=== PATIENT | female | born 1995 | race Caucasian/White ===

== ENCOUNTER 2017-03-30 17:06 | Inpatient (IN) | payer MEDICAID, OTHER ==
[2017-03-30] MEDS ORDERED: Promethazine HCl 25 MG/ML VIAL IM PRN (18:37)
[2017-03-30] MEDS ORDERED: Ondansetron HCl/PF 4 MG/2 ML Vial IVP PRN (18:37)
[2017-03-30 19:07] LABS: Mean Platelet Volume 8.5 fL (7.4-10.4); Red Blood Cell (RBC) Count 4.46 mill/uL (4.00-5.20); White Blood Cell (WBC) Count 9.4 thou/uL (4.8-10.8)
[2017-03-30 19:15] LABS: ALT (SGPT) 9 U/L (8-55); AST (SGOT) 12 U/L (5-34); Alkaline Phosphatase 71 U/L (40-150); Anion Gap 14 mmol/L (10-20); BUN (Urea Nitrogen) 8 mg/dL (7.0-18.7); Bilirubin, Total 0.2 mg/dL (0.2-1.2); Calc. Creatinine Clearance 276 mL/min (70-130); Carbon Dioxide 19 mmol/L (22-29); Chloride 109 mmol/L (98-107); Estimated GFR-MDRD Greater than 90; Globulin 3.3 g/dL (2.4-3.5)
[2017-03-30] MEDS ORDERED: Lactated Ringer's 1,000 ML IV SCH (19:15)
--- NOTE | 2017-03-30 20:52 | PDOC.EVN ---
Event Note - Event Note Event Note: Patient seen and examined in room 320 at 2045pm. Case discussed with Dr. Fortune/Christopher and her H&P reviewed and repeated by me. Agree with A/P as documented. Teresa is a 21 y/o at 14 4/7 weeks who presents to the office today for n/ v and dizziness. States for last 2 weeks increased n/v despite taking diclegis 2 tabs po qhs. Then started having some dizziness. In office received 1.5L NS bolus and zofran. Orthostatics were positive with HR increase from 90s to 120s. Sent over for observation and continue IVF. Also endorses a 2# weight loss. She has tolerated dinner with only mild nausea and no vomiting. VSS Gen: A&O x3, nad CV: normal s1/s2 no m Lungs: ctab Abd: soft, nt/nd Ext: no c/c/e, pulses full and equal Labs reviewed. 1) IUP at 14 4/7 weeks 2) Moderate dehydration- LR at 200 ml per hour. Recheck orthostatics in the am\ 3) N/v of vs hyperemesis gravidarum-increase diclegis to 4 tabs daily and add prn zofran/phenergan
[2017-03-30] MEDS: Lactated Ringer's 1,000 ML IV SCH (21:06)
[2017-03-30] MEDS ORDERED: Doxylamine 25 MG TAB PO SCH (21:21)
[2017-03-31] MEDS: Lactated Ringer's 1,000 ML IV SCH ×2 (01:04→06:07)
--- NOTE | 2017-03-31 02:01 | HP-2 ---
CODE STATUS: FULL. PRIMARY CARE PHYSICIAN: Dr. Mitch Stafford. ATTENDING PHYSICIAN: Dr. Rochelle Keating RESIDENT PHYSICIAN: Dr. Massiel Fortune. CHIEF COMPLAINT: Nausea, vomiting, dizziness. HISTORY OF PRESENT ILLNESS: This is a 21-year-old female G3, P2-0-0-2 at 14 and 4 weeks that present s with nausea, vomiting, dizziness upon standing, onset of symptoms was 2 weeks ago. Patient has bee n unable to keep down food or liquids during that time. She also endorses a 2 pound weight loss over the course of 2 weeks. Patient has had no complications during this current . She has bee n taking Diclegis at night without any relief of symptoms. Patient was given Zofran and 1.5 liter no rmal saline in procedure clinic at [facility]. However, after receiving a 1.5 liter bolus. Sh henrique stood up and almost passed out that she was sent over for observation and further fluid resuscitati on. PAST MEDICAL HISTORY: 1. Morbid obesity. 2. Asthma. PAST SURGICAL HISTORY: Cholecystectomy. ALLERGIES: SULFA. MEDICATIONS: 1. Zofran ODT 8 mg q.6 hours p.r.n. 2. CitraNatal 90 DHA 90-1-300 mg oral daily. 3. Diclegis 10-10 mg oral tablet, delayed release 2 tablets at bedtime. FAMILY HISTORY: Father with osteogenesis imperfecta and diabetes in both mother and father. SOCIAL HISTORY: Patient denies tobacco, alcohol, or drug use. REVIEW OF SYSTEMS: A 12 point review of systems was performed and all were negative except as listed in the HPI and as indicated below: Patient does endorse nasal congestion, rhinorrhea and congestion over the last several weeks. She denies any shortness of breath or chest pain. Patient has had dec reased urination during the course of this 2 weeks and endorses weakness, particularly upon standing. PHYSICAL EXAMINATION: VITAL SIGNS: Blood pressure 130/84, pulse 90, respiratory rate 20, T-max 98.5, pulse ox 98% on room air. Current weight 115 kilograms. GENERAL: Alert and oriented x3, no acute distress. Well-developed, well-nourished, obese, appropria tely interactive. EYES: Pupils are equally round and reactive to light and accommodation. Extraocular muscles intact. Conjunctivae within normal limits. ENT: Nasal mucosa within normal limits. NECK: Supple, without lymphadenopathy. CARDIOVASCULAR: Regular rate and rhythm. No murmur or gallops. Radial pulses 2+, pedal pulses 2+. RESPIRATORY: Normal effort, no retractions, clear to auscultation bilaterally. SKIN: Warm and dry. No cyanosis. No lesions. ABDOMEN: Soft, nontender to palpation. Bowel sounds positive in all 4 quadrants. No masses or dist ention. The patient is gravid. EXTREMITIES: No clubbing, cyanosis, or edema. MUSCULOSKELETAL: Structure within normal limits. Tone within normal limits. NEUROLOGIC: No focal deficits. Sensation within normal limits. GCS 15. PSYCHIATRIC: Appropriate. LABORATORY DATA: 1. CBC reveals white blood cell count 9.4, hemoglobin 15.0, hematocrit 38.0, platelets 262. 2. CMP reveals sodium 138, potassium 3.5, chloride 109, bicarbonate 19, BUN 8, creatinine 0.59, gluc ose 71, calcium 9.0, total protein 7.0, albumin 3.7, total bilirubin 0.2, AST 12, ALT 9, alkaline whit sphatase 71. ASSESSMENT AND PLAN: This is a 21-year-old female, G3, P2-0-0-2 at 14 and 4 weeks that presents with nausea, vomiting, and dizziness. 1. Hyperemesis gravidarum. We will continue Diclegis and consider increasing the dose to 3 times a day. Additionally, patient has Zofran and Phenergan p.r.n. for nausea and vomiting. We will see [facility] of these medications works best for patient and consider sending her home on the appropriate medic ation. 2. Moderate dehydration. Continue IV fluids at 200 mL per hour, lactated Ringer's. Patient was giv en 1.5 liters in clinic. We will monitor heart rate and other vital signs and continue to observe th e patient overnight. 3. Intrauterine at 14 and 4 weeks: Second trimester. Patient is doing well. heart tones were 135 to 140 beats per minute, on Doppler. DISPOSITION AND LENGTH OF HOSPITAL STAY: One day. Symptomatic medications will be provided. History and physical exam as well as management discussed with Dr. Rochelle Keating.
--- NOTE | 2017-03-31 07:04 | PDOC.LDPN ---
Labor & Delivery Progress Note - Subjective Subjective: comfortable (Patient had a good night. She states the nausea medicine really works. She states she has not vomited or had diarrhea since she has been here. She states she does get nauseas at times, but the medicine takes it away pretty quickly. She denies any vaginal bleeding or discharge. She denies contractions or abdominal pain. She was able to tolerate food last night and is feeling much better. No other concerns this morning. ) - Objective Vital signs reviewed and normal: yes General: NAD Uterine fundus: non tender
--- NOTE | 2017-03-31 07:10 | PDOC.FM ---
- Subjective Subjective: Patient is ready to go home today. She states that the nausea medicine really works. She states she does get nauseas at times, but the medicine takes care of it. She denies any vomiting/diarrhea while in the hospital. She denies any abdominal pain. She also denies vaginal bleeding or discharge. She states she was able to tolerate food last night and drink plenty. She feels like the IVF helped her get caught back up on her hydration. She said several times that she feels much better today. - Objective Vital Signs & Weight: Vital Signs (12 hours) Temp Pulse Resp BP Pulse Ox 03/31/17 01:05 98.6 F 81 16 110/53 L 98 03/30/17 20:11 98.3 F 80 18 98/56 L 99 I&O: 03/30/17 03/31/17 04/01/17 06:59 06:59 06:59 Intake Total 2541 Balance 2541 Result Diagrams: 03/30/17 17:37 03/30/17 17:37 <Myles Ward - Last Filed: 03/31/17 08:22> - Objective Vital Signs & Weight: Vital Signs (12 hours) Temp Pulse Resp BP Pulse Ox 03/31/17 08:58 98.2 F 79 20 127/65 98 03/31/17 07:40 98.6 F 81 16 Weight Weight 114.759 kg I&O: 03/30/17 03/31/17 04/01/17 06:59 06:59 06:59 Intake Total 2541 Balance 2541 Result Diagrams: 03/30/17 17:37 03/30/17 17:37 <Elizabeth Hitchcock - Last Filed: 03/31/17 13:11> Phys Exam - Physical Examination HEENT: PERRLA, moist MMs Neck: no nodes, no JVD Respiratory: no wheezing, clear to auscultation bilateral Cardiovascular: RRR, no significant murmur Gastrointestinal: soft, non-tender, no distention, positive bowel sounds Musculoskeletal: no edema, pulses present Neurological: non-focal, normal sensation, moves all 4 limbs Lymphatic: no nodes Psychiatric: normal affect, A&O x 3 Skin: no rash <Myles Ward - Last Filed: 03/31/17 08:22> Dx/Plan (1) Hyperemesis gravidarum Code(s): O21.0 - MILD HYPEREMESIS GRAVIDARUM Status: Acute Plan: -Zofran and Diclegis have controlled symptoms -Now tolerating PO -Likely to be discharged home today with medications to help with nausea (2) Intrauterine Code(s): Z34.90 - ENCNTR FOR SUPRVSN OF NORMAL , UNSP, UNSP TRIMESTER Status: Acute Plan: -21 yo at 14w5d Recommend to keep all routine care visits. (3) Dehydration Code(s): E86.0 - DEHYDRATION Status: Acute Plan: -Likely resolved -Tolerating PO - Plan Plan: Patient can be discharged home today with routine follow up. <Myles Ward - Last Filed: 03/31/17 08:22> Attending Addendum - Attending Addendum I personally evaluated the patient and discussed the management with Dr. Ward I agree with the History, Examination, Assessment and Plan documented above with any addition or exceptions noted below. 21 yo female at 14.5 wks admitted for severe nausea and vomitting of with moderate dehydration. Did well overnight. Medications started. IVFs given. Patient tolerated solids this AM. No N/V. VSS. Okay for d/c today. Precautions addressed. Follow up with PCP next week. Adam <Elizabeth Hitchcock - Last Filed: 03/31/17 13:11>
[2017-03-31] MEDS ORDERED: Prenatal Vitamin 1 TAB PO SCH (09:00)
[2017-03-31 09:02] VITALS: BP 127/65; TEMP 98.2
--- NOTE | 2017-03-31 10:40 | DIS-2 ---
DATE OF ADMISSION: 03/30/2017 DATE OF DISCHARGE: 03/31/2017 RESIDENT: Dr. Myles Ward ADMITTING ATTENDING: Dr. Yovanny Keating DISCHARGE ATTENDING: Elizabeth Hitchcock M.D. CONSULTATIONS: None. PROCEDURES: None. DISCHARGE DIAGNOSES: 1. Hyperemesis . 2. Intrauterine . 3. Dehydration. SECONDARY DIAGNOSES: Asthma and morbid obesity. DISCHARGE MEDICATIONS: 1. vitamin. 2. Docusate 240 mg b.i.d. 3. Ibuprofen 800 mg. 4. Diclegis 4 tablets as directed. HISTORY OF PRESENT ILLNESS AND HOSPITAL COURSE: This is a 21-year-old female, G3, P2-0-0-2 at 14 weeks and 4 days presents with nausea, vomiting, dizziness upon standing. Onset of symptoms about 2 weeks ago. The patient has been unable to keep down food or liquids during this time. She also endorses 2 pound weight loss over the course 2 weeks. The patient has had no complications during this current . She has been taking Diclegis at night without any relief of symptoms. The patient was given Zofran, 1.5 liters normal saline at [facility]. However, after receiving 1.5 liters bolus she stood up and almost passed out. She was sent over for observation and further fluid resuscitation. During this hospitalization, she was given Zofran and maintenance fluids. She was no longer symptomatic, no longer feeling dizzy. She was able to eat and keep food down appropriately. She felt like her hydration status had improved back to baseline and that her nausea was under well control. She did state she was continuing to have nausea, but the Zofran immediately helped that and then helped her keep the food down. She also went under heart tones while she was here and had heart tones were found and were reassuring and so it was recommended that she be discharged and has her routine follow up going forward. Otherwise, the patient had no other complications during this hospitalization and was discharged in appropriate condition. DISPOSITION: Stable. DISCHARGE INSTRUCTIONS: 1. Location: She will be discharged home under her own care. 2. Diet will be as tolerated with no restrictions, but we do recommend she take it easy until her nausea has resolved completely as far as a bland diet. 3. Activity will be as tolerated with no restrictions. 4. Followup: Follow up will be with [facility] in the next 3-7 days to discuss further management of her nausea and to follow up with her routine care. We wish her the best of luck and hope she has an uneventful going forward. SOURAV
[2017-03-31] MEDS ORDERED: Doxylamine 25 MG TAB PO SCH (21:00)
== END 2017-03-31 09:56 | disposition home or self-care (01) | DRG 781 ==
LOC: ERS 17:06 → 3SE 17:06 → UNDOADMIN 18:04 → 3SE 18:04 → UNDODISIN 03-31 09:56
PROVIDERS: ADMIT Student in an Organized Health Care Education/Training Program; ATTEND Student in an Organized Health Care Education/Training Program
PROC: 4A0HXCZ Measurement of Products of Conception, Cardiac Rate, External Approach (ICD-10-PCS; principal; 2017-03-31)
DX: O21.0 Mild hyperemesis gravidarum (principal); E66.01 Morbid (severe) obesity due to excess calories; E86.0 Dehydration; O99.212 Obesity complicating pregnancy, second trimester; O99.512 Diseases of the respiratory system complicating pregnancy, second trimester; J45.909 Unspecified asthma, uncomplicated; O99.282 Endocrine, nutritional and metabolic diseases complicating pregnancy, second trimester; Z3A.14 14 weeks gestation of pregnancy; Z88.2 Allergy status to sulfonamides; Z90.49 Acquired absence of other specified parts of digestive tract; Z83.3 Family history of diabetes mellitus
CPT/HCPCS: 80053; 85027; J2405

== ENCOUNTER 2017-07-04 15:44 | Day surgery (SDC) | payer OTHER ==
[2017-07-04 16:15] VITALS: BMI 42.9
[2017-07-04 16:16] VITALS: BP 107/58; TEMP 99.3
--- NOTE | 2017-07-04 17:23 | PDOC.LDHP ---
Labor and Delivery H&P Chief complaint: loss of fluid HPI: 21 yo at 28.2 wks here complaining of leaking fluid, occasional ctx and some bleeding (last on 06/26). Fluid leaking happens "most" days, per pt. Ctx usually last a few seconds each, total 2-3 minutes at a time, but not happening every day. Bleeding is usually just some spotting, but on the she quantifies it as being about a cupful of blood. Has been seeing MFM for fetus with clubfeet and elevated S:D ratios. Last saw MFM on 06/23, has f/u appt on . Has PMH of asthma, not on medication. Of note pt initially had previa, but has progressed to posterofundal placenta now. Current gestational age (weeks): 28 Grav: 3 Para: 2 Abnormal US findings: Yes Current medications: pre-bev vitamins Previous surgical history: none Social history: none - Physical Exam Vital signs reviewed and normal: yes General: NAD, resting Heart: RRR Lungs: CTAB Abdomen: NTTP Extremeties: no edema FHT: category 1 [place] contractions every: none - Assessment Possible PPROM - Plan Plan: observation in L&D -: Will observe for contractions. Sterile spec done for pooling, none noted. Amnisure, fFN, VP3, GBS swabs collected. Unless she develops ctx, will hold fFN. DVP of DVP > 4cm visualized on bedside sono, as well as posterofundal placental location. Good tone. <Ge Rice - Last Filed: 07/04/17 17:17> <John Garcia - Last Filed: 07/04/17 19:53> Allergies/Adverse Reactions: Allergies Allergy/AdvReac Type Severity Reaction Status Date / Time Sulfa (Sulfonamide Allergy Verified 05/16/15 10:55 Antibiotics) Attending Addendum - Attending Addendum Date/Time: 07/04/171951 I personally evaluated the patient and discussed the management with Dr. Rice. I agree with and repeated the History, Examination, Assessment and Plan documented above with any addition or exceptions noted below. Reassuring NST. DVP 4.54 cm. Incidental BPP 8/10 (off for breathing, did not wait beyond 10 minutes). +UA, negative VP3 and amnisure. Will d/c home with antibiotics. <John Garcia - Last Filed: 07/04/17 19:53>
[2017-07-04 17:32] LABS: Amnisure Internal Control QC ACCEPTABLE (ACCEPTABLE); Amnisure Test No Membranes Rupture (No Rupture)
[2017-07-04 17:33] LABS: Bilirubin Negative (Negative); Blood, Urine Negative (Negative); Clarity CLOUDY (Clear); Glucose, Urine (Dipstick) Negative (Negative); Leukocyte Moderate (Negative); Nitrite Negative (Negative); Protein, Urine (Dipstick) Trace mg/dL (Neg-Trace); Specific Gravity, Urine 1.026 (1.002-1.036)
[2017-07-04 17:38] LABS: RBC/HPF 0-3 HPF (0-3); WBC/HPF 21-50 HPF (0-3)
[2017-07-04 17:52] LABS: Bacteria/HPF 1+ HPF (None Seen); Hyaline Casts/LPF 0-3 HYALINE CAST LPF (0-3 Hyaline); Other Casts/LPF None Seen LPF (0-3 Hyaline)
[2017-07-04 17:53] LABS: Yeast-All Forms Rare HPF (None Seen)
--- NOTE | 2017-07-04 19:24 | PDOC.LDPN ---
Labor & Delivery Progress Note - Subjective Subjective: comfortable - Objective Vital signs reviewed and normal: yes General: NAD Uterine fundus: non tender SVE: Deferred FHT: category 1 [place] contractions every: none - Assessment (1) Cystitis during in third trimester, antepartum Code(s): O23.13 - INFECTIONS OF BLADDER IN , THIRD TRIMESTER Status: Acute Comment: tx with keflex with Ucx sent today- will f/u and assure neg TATA. -: D/C home with labor precautions <Martina Dorsey - Last Filed: 07/04/17 19:22> Attending Addendum - Attending Addendum Date/Time: 07/04/171953 I personally evaluated the patient and discussed the management with Dr. Dorsey. I agree with the History, Examination, Assessment and Plan documented above with any addition or exceptions noted below. See H&P. <John Garcia - Last Filed: 07/04/17 19:55>
== END 2017-07-04 19:28 | disposition home or self-care (01) ==
LOC: L&D/OP 15:44
PROVIDERS: ATTEND Student in an Organized Health Care Education/Training Program
DX: O46.93 Antepartum hemorrhage, unspecified, third trimester (principal); O99.89 Other specified diseases and conditions complicating pregnancy, childbirth and the puerperium; N89.8 Other specified noninflammatory disorders of vagina; O23.13 Infections of bladder in pregnancy, third trimester; Z3A.28 28 weeks gestation of pregnancy; Z79.899 Other long term (current) drug therapy; Z88.2 Allergy status to sulfonamides
CPT/HCPCS: 51701; 59025; 76815; 81001; 84112; 87081; 87086; 87480; 87510; 87660; 99285

== ENCOUNTER 2019-06-23 01:49 | Emergency (ER) | payer OTHER | END 2019-06-23 03:17 | disposition home or self-care (01) | LOC: ERS 01:49 | DX: O9A.211 Injury, poisoning and certain other consequences of external causes complicating pregnancy, first trimester (principal); S30.811A Abrasion of abdominal wall, initial encounter; S50.812A Abrasion of left forearm, initial encounter; O99.511 Diseases of the respiratory system complicating pregnancy, first trimester; J45.909 Unspecified asthma, uncomplicated; Z3A.11 11 weeks gestation of pregnancy; W10.9XXA Fall (on) (from) unspecified stairs and steps, initial encounter ==

== ENCOUNTER 2019-12-12 10:06 | Day surgery (SDC) | payer OTHER ==
[2019-12-12] MEDS ORDERED: hydrALAZINE 20 MG/ML VIAL SLOW IVP PRN (10:29)
[2019-12-12 10:31] VITALS: BMI 46.4
--- NOTE | 2019-12-12 10:32 | PDOC.FPROB ---
FMR OB H&P: HPI - History of Present Illness Chief Complaint: Tachycardia History of Present Illness: Pt is a 24 yo at 36 wks via a 12 wk US who presents from clinic for tachycardia on doppler. HR noted to be 186 bpm in clinic. Patient denies any complaints or concerns. She endorses good movement, no contractions, no LOF, no vaginal discharge or vaginal bleeding. No recent sick contacts. Tolerating PO without difficulty. She denies trauma or recent sexual intercourse. Primary Care Physician: PCP: PEPE Mccarthy FMR OB H&P: Current - Care : 4 Para: 2102 Gestational age: 37 Due date: 01/09/2020 Dating Criteria: 12 wk US Course/Complications: Obesity, excessive weight gain, asthma, h/o of delivery - OB Labs Blood type: A RH: positive Antibody Screen: negative HIV: negative RPR: negative Rubella: immune Gonorrhea: negative Chlamydia: negative Pap Smear: 06/27/2019 NILM 3 hour GTT: F: 86, 1H: 152, 2H: 103 A1c: 5.1 GBS: unknown (Specimen collected on 12/12/2019) H&H: 12.1/35.8 Platelets: 189 FMR OB H&P: History - Past Medical History PMH: Asthma - OB History OB History: Obesity, excessive weight gain, h/o of delivery @ 32 weeks Previous : 1. @ 40.2 wks- Male 2. @ 37 wks- Male 3. @ 32 wks- Male Patient was on [place] shots from 16 weeks and just recently stopped. She states her pre term delivery was 2/2 short interval. 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 with 3 children. FOB deported to [place]. - Family History Family History: Father of baby & Son: Club Foot 1st Cousin: Down Syndrome Son: Seizures Father (): NE @ 52, Osteogensis Imperfecta Mother: DM, Cancer Maternal Grandmother: Cancer Paternal Grand Father: Osteogenesis Imperfecta, DM Paternal Grandmother: Cancer Paternal Uncle: Club Foot FMR OB H&P: Medications - Current Home Medications: Medication Instructions Recorded Confirmed Type Pnv No.95/Ferrous Fum/Folic AC 1 tablet PO DAILY 11/19/19 12/12/19 History [ Tablet] Allergies/Adverse Reactions: Allergies Allergy/AdvReac Type Severity Reaction Status Date / Time Sulfa (Sulfonamide Allergy Verified 11/19/19 16:39 Antibiotics) FMR OB H&P: ROS - Review of Systems General: denies: fever/chills, weight/appetite/sleep changes Eyes: denies: vision changes Cardiovascular: denies: chest pain, palpitation Respiratory: denies: cough, shortness of breath Gastrointestinal: denies: abdominal pain, nausea, vomiting, bright red blood Genitourinary (Female): denies: dysuria, hematuria, vaginal discharge, vaginal bleeding, contractions, vaginal pressure Neurologic: denies: weakness, headache Integumentary: denies: rash Hematologic/Lymphatic: denies: prolonged or excessive bleeding FMR OB H&P: Vital Signs - Maternal Vital signs: BP 121/89 SpO2 100% on RA HR 89 - Heart Tones Baseline: 130 (Reactive strip) Variability: moderate Acceleration: present Deceleration: absent FMR OB H&P: Physical Exam - Physical Exam General: NAD, awake, alert and oriented HEENT: normocephalic and atraumatic, EOMI Neck: supple, trachea midline Chest: non-tender to palpation Heart: RRR, normal S1/S2 General: CTAB, no respiratory distress Abdomen: soft, gravid, non-tender Musculoskeletal: pulses present, FROM in all four extremities Neurological: no clonus, no focal deficit Skin: no rash, good tugor Lymphatic: no unusual bruising or bleeding Psychiatric: intact recent and remote memory, good judgement and insight FMR OB H&P: A/P Disposition: pt is a 24 yo at 36 wks via a 12 wk US who presents from clinic for tachycardia on doppler 1. Tachycardia -186bpm baseline in clinic, mom was tachycardic to the 120s on presentation -s/p 1L bolus, improved and maternal HR -Growth scan and BPP performed today: EFW 2943g, 64% [place], CHANG 6.1, BPP 6/8 for breathing. Vertex with anterior placenta. -on presentation, strip had a baseline 180s bpm with positive, prolonged accels to the 190s and 200s. Repeat check one hour later was 130bpm baseline with positive accels, no decels. -U/A negative 2. History of pre term delivery -hx of delivery at 32 weeks likely 2/2 short interval -patient on [place] shots this -denies contractions, LOF, or vaginal pressure/pain 3. Asthma -aware 4. Hx of Chlamydia -2015, treated -no symptoms today Dispo: discharge home as tachycardia resolved after 1L bolus. Extended monitoring reassuring. Follow up in 1 week at [facility]. Discussion: Date/Time: 12/12/19 1032 This H&P was discussed with Dr. Azul and Dr. Ingram who agree with the above documentation and plan. Addendum - Attending - Attending Attestation Date/Time: 12/12/19 8336 I personally evaluated the patient and discussed the management with Dr. [] I agree with the History, Examination, Assessment and Plan documented above with any addition or exceptions noted below. presented from clinic with concern for tachycardia on handheld Doppler. Patient was observed for approximately 2 hours. Initially heart rate was in the 160s-170s with accelerations into the 190s. After a 1 L bolus of fluid, heart rate had decreased to a baseline of 140 with multiple accelerations , no decelerations, and no contractions. Patient's pulse was initially tachycardic at 110. After fluid bolus, she was resting comfortably with a pulse in the 80s. BPP reassuring with 6 out of 8 with points lost for breathing. Discharged home with routine follow-up. Return to care precautions given.
[2019-12-12] MEDS ORDERED: Lactated Ringer's 1,000 ML IV SCH (11:00)
[2019-12-12 12:07] LABS: Bilirubin Negative (Negative); Blood, Urine Negative (Negative); Clarity Clear (Clear); Glucose, Urine (Dipstick) Normal (Negative); Ketone, Urine Negative (Negative); Leukocyte Negative Leu/uL (Negative); Nitrite Negative (Negative); Protein, Urine (Dipstick) Negative (Neg-Trace); RBC/HPF 0-3 HPF (0-3); Specific Gravity, Urine 1.009 (1.002-1.036); Squamous Epithelial 0-3 HPF (0-3); Urobilinogen Normal mg/dL (Less than 2); WBC/HPF 0-3 HPF (0-3)
[2019-12-12 12:08] LABS: Bacteria/HPF Rare-Few HPF (None Seen)
[2019-12-12 12:10] LABS: Urine Culture Reflex No No
--- NOTE | 2019-12-12 12:26 | ULT ---
ULTRASOUND BIOPHYSICAL PROFILE: DATE: 12/12/2019 HISTORY: 24-year-old female. tachycardia. Candy Packer gave verbal report to L&D nurse Katie prior to this report. FINDINGS: breathin tone: 2 movement: 2 Amniotic fluid volume: 2 IMPRESSION: Normal biophysical profile score of 6 out of 8, excluding the nonstress test. breathing not witnessed.
--- NOTE | 2019-12-12 12:45 | ULT ---
ULTRASOUND OBSTETRICAL COMPLETE: DATE: 12/12/2019 HISTORY: 24-year-old female with tachycardia. FINDINGS: number: lemus lie: Cephalic Maternal cervix: Obscured. Placenta: Anterior. No placenta previa. Amniotic fluid volume: CHANG = 6cm heart rate: 143 bpm anatomy not evaluated biometry: Biparietal diameter (BPD): 9.0 cm 36 w 3 d Head circumference (HC): 32.4 cm 36 w 5 d Abdominal circumference (AC): 32.4 cm 36 w 2 d Femur length (FL): 7.1 cm 36 w 4 d Average ultrasound age (AUA): 36 w 4 d Estimated date of delivery (FLACA): 01/05/2020 Estimated weight (EFW): 2943 g +/- 436 g IMPRESSION: 1) Live 3rd trimester intrauterine gestation. 2) Estimated gestational age of 36 weeks, 4 days 3) cephalic lie. 4) lie heart rate 143 bpm
== END 2019-12-12 13:00 | disposition home or self-care (01) ==
LOC: L&D/OP 10:06
PROVIDERS: ATTEND Family Medicine
DX: O36.8330 Maternal care for abnormalities of the fetal heart rate or rhythm, third trimester, not applicable or unspecified (principal); O99.213 Obesity complicating pregnancy, third trimester; E66.9 Obesity, unspecified; O99.513 Diseases of the respiratory system complicating pregnancy, third trimester; J45.909 Unspecified asthma, uncomplicated; O09.213 Supervision of pregnancy with history of pre-term labor, third trimester; Z3A.37 37 weeks gestation of pregnancy; Z88.2 Allergy status to sulfonamides
CPT/HCPCS: 59025; 76815; 76819; 81001; 96360; 96361; 99282

== ENCOUNTER 2019-12-29 13:50 | Inpatient (IN) | payer OTHER ==
[2019-12-29] MEDS ORDERED: Promethazine HCl 25 MG/ML VIAL IM PRN ×2 (14:16→16:07)
[2019-12-29] MEDS ORDERED: hydrALAZINE 20 MG/ML VIAL SLOW IVP PRN ×2 (14:16→21:32)
[2019-12-29] MEDS ORDERED: Ondansetron PF 4 MG/2 ML Vial IVP PRN ×3 (14:16→21:32)
[2019-12-29] MEDS ORDERED: Lactated Ringer's 1,000 ML IV SCH ×2 (14:30)
[2019-12-29] MEDS ORDERED: Methylergonovine 0.2 MG/ML VIAL IM PRN (14:35)
[2019-12-29] MEDS ORDERED: Lidocaine 1% (PF) 30 ML VIAL SC PRN (14:35)
[2019-12-29] MEDS ORDERED: Ibuprofen 800 MG TAB PO PRN (14:35)
[2019-12-29] MEDS ORDERED: Carboprost 250 MCG/ML AMP IM PRN (14:35)
[2019-12-29] MEDS ORDERED: NS / Oxytocin 40 units/1000ml 1,000 ML IV PRN (14:35)
[2019-12-29] MEDS ORDERED: Diphenoxylate HCl/Atropine Tablet PO PRN ×2 (14:35)
[2019-12-29] MEDS ORDERED: Misoprostol 200 MCG TAB PR PRN (14:35)
--- NOTE | 2019-12-29 14:41 | PDOC.FPROB ---
FMR OB H&P: HPI - History of Present Illness Chief Complaint: vaginal bleeding and contractions Indentification: @ 38.3 WGA History of Present Illness: 24YO @ 38.3 WGA presenting for evaluation for vaginal bleeding with contractions that began shortly after the bleeding. Reports ~30 minutes LAB COURIER she noticed her pants were wet and went to the bathroom and passed a few large clots in the toilet. Reports she had to change her pants 2x LAB COURIER. She endorses some mild abdominal cramping episodes overnight x2 without bleeding but ~5 minutes after the bleeding started she began having contractions that have become progressively more painful since her arrival to L&D. Endorses good movement. No LOF. Has passed a few clots since her arrival to L&D & denies any lightheadedness but does feel flushed. No vision changes, chest pain or N/V/D. Denies any drug use or trauma. Primary Care Physician: PEPE Mccarthy FMR OB H&P: Current - Care : 4 Para: 2103 Gestational age: 38.3 WGA Due date: 01/09/2020 Dating Criteria: 12 week sono Course/Complications: Obesity w/ excessive weight gain & Hx of PTL & delivery - OB Labs Blood type: A RH: positive Antibody Screen: negative HIV: negative RPR: negative HepBsAg: negative Rubella: immune Urine drug screen: not done Gonorrhea: negative Chlamydia: negative Pap Smear: NILM 1 hour gtt: 2hr GTT: 86/152/103 A1c: 5.1 GBS: negative H&H: 12.1/35.8 on 11/14/19 Platelets: 189 on 11/14/19 - Anatomy Survey Anatomy survey: WNLs - Additional Ultrasound Additional: BPP on 12/05/19 8/8 w/ R lateral placenta. 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 - Family History Family History: OI in father, paternal grandfather & paternal uncle club foot @ in spouse 1st cousin w/ down syndrome FMR OB H&P: Medications - Current Home Medications: Medication Instructions Recorded Confirmed Type Pnv No.95/Ferrous Fum/Folic AC 1 tablet PO DAILY 11/19/19 12/12/19 History [ Tablet] Allergies/Adverse Reactions: Allergies Allergy/AdvReac Type Severity Reaction Status Date / Time Sulfa (Sulfonamide Allergy Verified 11/19/19 16:39 Antibiotics) FMR OB H&P: ROS - Review of Systems General: denies: fever/chills Eyes: denies: vision changes ENT: denies: nasal congestion, sore throat Cardiovascular: denies: chest pain, edema Respiratory: denies: cough, shortness of breath Gastrointestinal: reports: abdominal pain. denies: nausea, vomiting Genitourinary (Female): reports: vaginal bleeding, contractions. denies: dysuria, hematuria, vaginal discharge Musculoskeletal: denies: pain Neurologic: denies: syncope, headache Integumentary: denies: itching, rash Psychological: denies: depression, anxiety FMR OB H&P: Vital Signs - Maternal Vital signs: Temp: 98.4F HR 108 RR 16 O2 sat 98% on RA BP: 126/91 - Heart Tones Baseline: 150 Variability: moderate Acceleration: present Deceleration: absent Category: category 1 [place] contractions every: 4 minutes FMR OB H&P: Physical Exam - Physical Exam General: awake, alert and oriented, other (mild distress from painful contractions) HEENT: normocephalic and atraumatic, MMM, grossly normal vision, grossly normal hearing Neck: supple, FROM Heart: normal S1/S2, no murmurs/rubs/gallops, no edema Deviation from normal: tachycardic General: CTAB, no respiratory distress, good air movement, no rales/rhonchi, no wheezing Abdomen: gravid, other (moderate TTP w/o guarding or rebound) Musculoskeletal: normal gait and station, FROM in all four extremities Neurological: cranial nerves II through XII intact, sensation to pain,touch and proprioception grossly normal, no focal deficit Skin: no rash, good tugor Lymphatic: no unusual bruising or bleeding Psychiatric: intact recent and remote memory, good judgement and insight, normal mood and affect - Pelvic Exam Vulva: normal hair distribution, appropriate noelle stage Deviation from normal: clots noted on vaginal exam but no heavy continuous bleeding noted SVE: 09/01/-2 Membranes: intact Presentation: cephalic FMR OB H&P: A/P - Problem List (1) Placental abruption Current Visit: Yes Status: Suspected Code(s): O45.90 - PREMATURE SEPARATION OF PLACENTA, UNSP, UNSP TRIMESTER Qualifiers: Trimester: third trimester Qualified Code(s): O45.93 - Premature separation of placenta, unspecified, third trimester (2) Obesity Current Visit: Yes Status: Chronic Code(s): E66.9 - OBESITY, UNSPECIFIED Qualifiers: Body mass index: BMI 45.0-49.9 (3) History of delivery, currently Current Visit: Yes Status: Chronic Code(s): O09.899 - SUPERVISION OF OTHER HIGH RISK PREGNANCIES, UNSP TRIMESTER (4) Active labor at term Current Visit: Yes Status: Acute Code(s): [id number] - (5) Asthma Current Visit: Yes Status: Chronic Code(s): J45.909 - UNSPECIFIED ASTHMA, UNCOMPLICATED Qualifiers: Asthma severity: mild Asthma persistence: intermittent Disposition: @ 38.3 WGA presenting for evaluation for vaginal bleeding with associated abdominal pain that began just LAB COURIER. Vaginal bleeding w/ abdominal pain: - Bleeding with clots & TTP w/ contractions noted on arrival since arrival. Patient is mildly tachycardic in the 110s but BP WNLs. FHTs reassuring w/ good variability & accels noted. SVE 09/01/-2. No continued active bleeding since arrival but suspect marginal placental abruption based on clinical picture. - Will admit for routine labor management & give 1L IVFs before starting LR @ 125mL/hr fluid resuscitation. Discussed that if patient and/or fetus become unstable, will need to proceed w/ stat C/S for delivery & patient in agreement with plan. - Will consult anesthesia for epidural now to be better prepared should she require C/S delivery. Hx labor & delivery: - Aware, patient now term this . Used brian injections up until 35 WGA. Mild intermittent asthma: - PRN albuterol, no hemabate for PPH. Obesity: - Aware, been following with [facility]. BMI 46. Dispo: Suspect marginal placental abruption. Will give IVFs for maternal resuscitation & admit for routine labor management and close monitoring. Discussion: Date/Time: 12/29/19 2191 This H&P was discussed with Dr. Tsang who agrees with the above documentation and plan.
[2019-12-29 14:46] VITALS: BMI 46.5
[2019-12-29 14:48] LABS: Hemoglobin 13.9 g/dL (12.0-16.0); Mean Corpuscular HGB CONC 33.8 g/dL (32.0-36.0); Mean Corpuscular Volume 85.8 fL (78.0-98.0); Mean Platelet Volume 10.2 fL (7.4-10.4); Platelet Count 244 thou/uL (130-400); RBC Distribution Width 12.1 % (11.5-14.5); Red Blood Cell (RBC) Count 4.81 mill/uL (4.20-5.40); White Blood Cell (WBC) Count 12.1 thou/uL (4.8-10.8)
[2019-12-29] MEDS ORDERED: Fentanyl 4 mcg/Bup 0.1% Cadd 100 ML ONE (15:19)
[2019-12-29 15:28] LABS: Syphilis Antibody Nonreactive (Nonreactive); Syphilis Antibody Index 0.03 S/CO (<1.00 Non-Reactive)
[2019-12-29 15:32] LABS: HBSAg Index 0.18 S/CO (0-0.99); Hep B Surf Ag Non-Reactive S/CO (NonReactive)
[2019-12-29] MEDS ORDERED: EPHEDRINE 25 MG/5 ML SYRINGE SLOW IVP PRN (16:05)
[2019-12-29] MEDS ORDERED: Lactated Ringer's 500 ML IV PRN (16:05)
[2019-12-29] MEDS ORDERED: Naloxone HCl 0.4 mg/ml Vial IVP PRN ×2 (16:06→16:07)
[2019-12-29] MEDS ORDERED: diphenhydrAMINE 50 MG/ML VIAL IVP PRN (16:07)
--- NOTE | 2019-12-29 16:11 | PDOC.OBLPN ---
FMR OB Labor PN: Subj - Interval History Hospital Day: 1 Chief Complaint: nausea Indentification: @ 38.3 WGA here for vaginal bleeding in labor. Interval History: Epidural placed since last exam, patient & fetus remain stable. FMR OB Labor PN: Obj - Maternal Vital signs: BP: 100/57 HR: 88 Pox: 96% on RA Wt: 127 kg - Procedures Resuscitative measures: maternal IV fluids FMR OB Labor PN: Exam - Physical Exam General: NAD, awake, alert and oriented HEENT: normocephalic and atraumatic, grossly normal vision, grossly normal hearing Neck: supple, FROM Heart: RRR General: no respiratory distress Abdomen: gravid Musculoskeletal: FROM in all four extremities Neurological: cranial nerves II through XII intact, sensation to pain,touch and proprioception grossly normal, no focal deficit Skin: no rash Psychiatric: intact recent and remote memory, good judgement and insight, normal mood and affect - Pelvic Exam Vulva: normal hair distribution, appropriate noelle stage Deviation from normal: scant dried blood noted on outer labia Deviation from normal: moderate bloody show with cervical check SVE: 5/75/-2 Membranes: intact Presentation: cephalic FMR OB Labor PN: Data - Labs Lab results: Laboratory Results - last 24 hr 12/29/19 12/29/19 12/29/19 14:36 14:36 14:36 WBC RBC Hgb Hct MCV MCH MCHC RDW Plt Count MPV Syphilis IgG/IgM Ab Nonreactive Hep Bs Antigen Non-Reactive Blood Type A POSITIVE Antibody Screen NEGATIVE Crossmatch See Detail 12/29/19 14:36 WBC 12.1 H RBC 4.81 Hgb 13.9 Hct 41.3 MCV 85.8 MCH 29.0 MCHC 33.8 RDW 12.1 Plt Count 244 MPV 10.2 Syphilis IgG/IgM Ab Hep Bs Antigen Blood Type Antibody Screen Crossmatch FMR OB Labor PN: A/P - Problem List (1) Placental abruption Current Visit: Yes Status: Suspected Code(s): O45.90 - PREMATURE SEPARATION OF PLACENTA, UNSP, UNSP TRIMESTER Qualifiers: Trimester: third trimester Qualified Code(s): O45.93 - Premature separation of placenta, unspecified, third trimester (2) Obesity Current Visit: Yes Status: Chronic Code(s): E66.9 - OBESITY, UNSPECIFIED Qualifiers: Body mass index: BMI 45.0-49.9 (3) History of delivery, currently Current Visit: Yes Status: Chronic Code(s): O09.899 - SUPERVISION OF OTHER HIGH RISK PREGNANCIES, UNSP TRIMESTER (4) Active labor at term Current Visit: Yes Status: Acute Code(s): [id number] - (5) Asthma Current Visit: Yes Status: Chronic Code(s): J45.909 - UNSPECIFIED ASTHMA, UNCOMPLICATED Qualifiers: Asthma severity: mild Asthma persistence: intermittent Disposition: @ 38.3 WGA presenting for evaluation for vaginal bleeding with associated abdominal pain found to be in active labor with a suspected partial placental abruption. Vaginal bleeding w/ abdominal pain, suspected marginal placental abruption: - Bleeding with clots & abdominal TTP w/ contractions noted on arrival but active bleeding has since stopped. Patient was mildly tachycardic initially as well but HR now WNLs s/p 1L of LR & continued IVFs. - Discussed that if patient and/or fetus become unstable, will need to proceed w/ stat C/S for delivery & patient in agreement with plan. Term in labor: - Given likely abruption but current maternal & status being stable, will continue cautiously with routine labor management. SVE ~1.5 hours from first check on admission /-2. Epidural in place. Due to no change in dilatation, will start pitocin for labor augmentation. Hx labor & delivery: - Aware, patient now term this . Used brian injections up until 35 WGA. Mild intermittent asthma: - PRN albuterol, no hemabate for PPH. Obesity: - Aware, been following with M. BMI 46. Dispo: Will proceed with routine labor management and close monitoring. Discussion: Date/Time: 12/29/19 1610 This H&P was discussed with Dr. Tsang who agrees with the above documentation and plan.
[2019-12-29] MEDS ORDERED: NS w/ Oxytocin 10 units 500 ML IV SCH ×2 (16:15)
[2019-12-29] MEDS ORDERED: Communication Order-Pharmacy FS SCH (16:15)
[2019-12-29] MEDS ORDERED: Fentanyl 4 mcg/Bupivacaine 0.1% Cassette 100 ML EPIDURAL SCH (16:15)
[2019-12-29] MEDS ORDERED: Lidocaine 1% (PF) 30 ML VIAL ONE (18:38)
[2019-12-29] MEDS ORDERED: NS / Oxytocin 40 units/1000ml 1,000 ML ONE (18:38)
--- NOTE | 2019-12-29 19:26 | PDOC.OPDEL ---
OB Operative/Delivery Note Delivery Dr/Surgeon: Fabio Anglin / Nataly - Additional Findings/Plan Compilations/Other Findings: Vaginal Delivery note Delivering Physician: Fabio Anglin Attending: Nataly Procedure: Spontaneous Vaginal Delivery Anesthesia: Epidural QBL: pending Pre-op Diagnosis: 1. Term intrauterine in labor 2. Hx of asthma 3. Obesity 4. Placental abruption Post-op Diagnosis: 1. Term intrauterine , delivered 2. same as above Indications: A 24y/o female presented in active labor with moderate vaginal bleeding. Delivery Note: This is 24y/o female @ 38.3wks who delivered a viable M at 1907. Following an uneventful antepartum course, a vigorous M was delivered over an intact perineum in the occipitoanterior position. Anterior Shoulder and then remainder of the body delivered. Nuchal cord x1. The head was held down and mouth and nares were bulb suctioned. Cord clamped and cut and cord blood collected. Placenta delivered intact with a 3 vessel cord noted. Fundal massage was performed and the fundus was firm. The cervix and vagina were inspected and found to be free of lacerations. Remaining amniotic membranes were removed manually. went to nursery in good condition for routine care. Apgars were 9/9 at 1 & 5 minutes, respectively. Patient tolerated delivery well and went to after routine recovery/care. attending addendum: I was present for and supervised the entire delivery. Patient presented with large quantity bright red blood per vagina. She also had definite amount of abdominal pain at that time. Bleeding resolved at the time of initial examination by resident team. Patient was initially 5 cm/50% effaced/-1 station. She spontaneously effaced to 75% and Pitocin was started for augmentation. heart tracing remained category 1 throughout her entire labor and delivery.spontaneous vaginal delivery was achieved without difficulty. Following delivery of the the placenta delivered spontaneously. A small amount of membrane was still noted protruding from the cervical loss and was manually removed. a small first-degree laceration was noted on the perineum. Quantitative blood loss at time of delivery was 607 mL. Cytotec 800 mcg was placed rectally due to patient's risk for hemorrhage. She tolerated the procedure well and had no additional immediate complications noted.
[2019-12-29] MEDS ORDERED: Milk Of Magnesia 30 ML UDCUP PO PRN (21:32)
[2019-12-29] MEDS ORDERED: Bisacodyl 10 MG SUPP PR PRN (21:32)
[2019-12-29] MEDS ORDERED: Lanolin Ointment 7 GM TUBE TOP PRN (21:32)
[2019-12-29] MEDS ORDERED: Preparation H Ointment 28 GM TUBE PR PRN (21:32)
[2019-12-29] MEDS ORDERED: NS / Oxytocin 40 units/1000ml 1,000 ML IV SCH (21:32)
[2019-12-29] MEDS ORDERED: Docusate Calcium (SURFAK) 240 MG CAP PO SCH (21:45)
[2019-12-29] MEDS: Ibuprofen 800 MG TAB PO SCH (23:46)
[2019-12-30] MEDS: Acetaminophen 325 MG TAB PO PRN ×2 (04:45→11:21)
[2019-12-30] MEDS: Ibuprofen 800 MG TAB PO SCH ×2 (06:33→14:03)
--- NOTE | 2019-12-30 06:52 | PDOC.PP ---
Post Progress Note Post Day #: 1 Subjective: Doing well. No concerns. PO intake tolerated: yes Flatus: yes Ambulation: yes Vital Signs (12 hours) Temp Pulse Resp BP Pulse Ox 12/29/19 23:30 97.7 F 81 18 102/53 L 12/29/19 22:05 97.8 F 86 18 104/51 L 98 Weight Weight 127.006 kg - Physical Examination General: NAD Cardiovascular: no m/r/g, RRR Respiratory: clear to auscultation bilaterally, non-labored breathing Abdominal: + bowel sounds, lochia, no distention, appropriately TTP Extremities: negative homans (B) Neurological: no gross focal deficits Psychiatric: A&Ox3, normal affect Result Diagrams: 12/29/19 14:36 Additional Labs: Post Labs Hep Bs Antigen Non-Reactive S/CO (NonReactive) 12/29/19 14:36 Blood Type A POSITIVE 12/29/19 14:36 (1) Asthma Code(s): J45.909 - UNSPECIFIED ASTHMA, UNCOMPLICATED Status: Chronic Qualifiers: Asthma severity: mild Asthma persistence: intermittent (2) Obesity Code(s): E66.9 - OBESITY, UNSPECIFIED Status: Chronic Qualifiers: Body mass index: BMI 45.0-49.9 (3) Placental abruption Code(s): O45.90 - PREMATURE SEPARATION OF PLACENTA, UNSP, UNSP TRIMESTER Status: Suspected Qualifiers: Trimester: third trimester Qualified Code(s): O45.93 - Premature separation of placenta, unspecified, third trimester (4) (spontaneous vaginal delivery) Code(s): O80 - ENCOUNTER FOR FULL-TERM UNCOMPLICATED DELIVERY Status: Acute - Assessment/Plan now P3104 delivered @ 38.3wks EGA. PPD #1 s/p . @ 1907 12/29/2019 Routine care. Ibuprofen for pain. QBL: 812mL Complicated by marginal placental abruption. Received 800mcg cytotec [place] immediately post-. PP Contraception: had vasectomy. Hx labor & delivery: - Used brian injections up until 35 WGA. Mild intermittent asthma: - PRN albuterol, no hemabate for PPH. Obesity: - Aware, been following with [facility]. BMI 46. Martín LOCKWOOD PGY2
[2019-12-30] MEDS ORDERED: Docusate Calcium (SURFAK) 240 MG CAP PO SCH (09:00)
[2019-12-30] MEDS ORDERED: Adacel (T-DAP) 0.5 ML SYRINGE IM ONE (09:00)
[2019-12-30] MEDS ORDERED: Prenatal Vitamin 1 TAB PO SCH (09:00)
[2019-12-30] MEDS: Ferrous Sulfate 325 MG TAB PO SCH ×2 (10:00→15:17)
[2019-12-30 13:27] LABS: SARS-CoV-2 MS2 Positive; SARS-CoV-2 N Gene Negative; SARS-CoV-2 S Gene Negative; SARS-CoV-2 by NAA Not Detected (NotDetected); SARS-CoV-2 orf1ab Negative
[2019-12-30 20:30] VITALS: BP 109/67; TEMP 98.6
== END 2019-12-30 21:40 | disposition home or self-care (01) | DRG 807 ==
LOC: L&D/OP 13:50 → L&D 17:03 → 3SW 22:20
PROVIDERS: ADMIT Family Medicine; ATTEND Family Medicine
PROC: 10E0XZZ Delivery of Products of Conception, External Approach (ICD-10-PCS; principal; 2019-12-29)
PROC: 0HQ9XZZ Repair Perineum Skin, External Approach (ICD-10-PCS; 2019-12-29)
DX: O45.93 Premature separation of placenta, unspecified, third trimester (principal); Z37.0 Single live birth; Z3A.38 38 weeks gestation of pregnancy; Z20.828 Contact with and (suspected) exposure to other viral communicable diseases; O99.214 Obesity complicating childbirth; E66.9 Obesity, unspecified; O99.52 Diseases of the respiratory system complicating childbirth; J45.20 Mild intermittent asthma, uncomplicated; O70.0 First degree perineal laceration during delivery; Z79.899 Other long term (current) drug therapy; Z88.2 Allergy status to sulfonamides
CPT/HCPCS: 36415; 51702; 85027; 86780; 86850; 86900; 86901; 87340; 87635; 99285; J2001; J2405; J2590; U0003

== ENCOUNTER 2021-12-19 19:25 | Emergency (ER) | payer OTHER, SELFPAY ==
[2021-12-19] MEDS ORDERED: Acetaminophen 500 MG TAB ONE (20:21)
[2021-12-19] MEDS ORDERED: diphenhydrAMINE 50 MG/ML VIAL ONE (20:34)
[2021-12-19] MEDS ORDERED: Metoclopramide HCl 10 MG/2 ML VIAL ONE (20:34)
[2021-12-19 20:40] LABS: #Lymphocytes 0.2 thou/uL (1.20-3.40); #Monocytes 0.6 thou/uL (0.11-0.59); #Neutrophils 3.4 thou/uL (1.40-6.50); %Basophils 1.1 % (0.0-1.0); %Eosinophils 0.5 % (0.0-10.0); %Lymphocytes 4.3 % (21.0-51.0); %Monocytes 13.5 % (0.0-10.0); %Neutrophils 80.5 % (42.0-75.0); Hemoglobin 14.1 g/dL (12.0-16.0); Mean Corpuscular HGB CONC 34.5 g/dL (32.0-36.0); Mean Corpuscular Volume 87.1 fL (78.0-98.0); Mean Platelet Volume 8.8 fL (7.4-10.4); Platelet Count 232 thou/uL (130-400); Red Blood Cell (RBC) Count 4.71 mill/uL (4.20-5.40); White Blood Cell (WBC) Count 4.3 thou/uL (4.8-10.8)
[2021-12-19 20:48] LABS: BHCG - Serum Negative (NEGATIVE); Pregs Control Background? CLEAR/WHITE (CLR/WHITE); Pregs Control Bar Appear? YES (CONTROL BAR)
[2021-12-19 21:03] LABS: ALT (SGPT) 22 U/L (8-55); AST (SGOT) 21 U/L (5-34); Albumin 4.2 g/dL (3.5-5.0); Alkaline Phosphatase 77 U/L (40-110); Anion Gap 11 mmol/L (10-20); BUN (Urea Nitrogen) 8 mg/dL (7.0-18.7); Bilirubin, Total 0.4 mg/dL (0.2-1.2); CK (CPK) 267 U/L (29-168); Calc. Creatinine Clearance 0 mL/min (70-130); Calcium 9.4 mg/dL (7.8-10.44); Carbon Dioxide 24 mmol/L (22-29); Chloride 103 mmol/L (98-107); Estimated GFR 96; Globulin 3.1 g/dL (2.4-3.5); Glucose 99 mg/dL (70-105); Lipase 37 U/L (8-78); Potassium 3.3 mmol/L (3.5-5.1); Protein, Total 7.3 g/dL (6.0-8.3); Sodium 135 mmol/L (136-145)
[2021-12-19 22:07] LABS: SARS-CoV-2 NAA Rapid Test DETECTED (NotDetected)
[2021-12-19] MEDS ORDERED: Potassium Chloride 20 MEQ TAB ONE (22:54)
== END 2021-12-19 23:30 | disposition home or self-care (01) ==
LOC: ERS 19:25
DX: U07.1 COVID-19 (principal); E87.6 Hypokalemia
CPT/HCPCS: 71045; 80053; 82550; 83605; 83690; 84484; 84703; 85025; 93005; 96361; 96365; 96375; J1200; J2765

== ENCOUNTER 2021-12-28 17:04 | Emergency (ER) | payer OTHER | END 2021-12-28 17:28 | disposition home or self-care (01) | LOC: ERS 17:04 | DX: U07.1 COVID-19 (principal); J45.909 Unspecified asthma, uncomplicated; Z87.442 Personal history of urinary calculi | CPT/HCPCS: 99283 ==